=== PATIENT | female | born 1965 | race Caucasian/White ===

== ENCOUNTER 2017-12-28 05:43 | Day surgery (SDC) | payer OTHER ==
[~2017-12-28 05:43] MED LIST: CLARINEX5 MG/TAB PO; FLUTIC IN; LEXAPRO20 MG PO; NEPHRONEX-SL T1 EACH PO; OMEPRAZOLE20 MG PO; RIFAMPIN300 MG PO; TOLTERODINE TART4 MG PO
[2017-12-28] MEDS ORDERED: ULTRACET PO (13:09)
[2017-12-28] MEDS ORDERED: MACROBID 100 M100 MG PO (13:09)
== END 2017-12-28 18:45 | disposition home or self-care (01) ==
LOC: CIR.AMB 05:43
DX: N39.3 Stress incontinence (female) (male) (principal)
CPT/HCPCS: 57288; C1771